=== PATIENT | male | born 1975 | race Caucasian/White ===

== ENCOUNTER 2017-06-25 02:42 | Emergency (ER) | payer MEDICAID ==
[~2017-06-25] VITALS: Ht 177.8 cm; Wt 114.0 kg
[2017-06-25 03:04] VITALS: BP 142/92
== END 2017-06-25 04:46 | disposition left against medical advice (07) ==
LOC: ER 02:42
DX: Z04.3 Encounter for examination and observation following other accident (principal); Z53.21 Procedure and treatment not carried out due to patient leaving prior to being seen by health care provider

== ENCOUNTER 2017-10-16 21:22 | Emergency (ER) | payer SELFPAY ==
[~2017-10-16] VITALS: Ht 177.8 cm; Wt 118.0 kg
[2017-10-16] MEDS ORDERED: KETOROLAC 60MG/2ML VIAL IM STA (23:30)
[2017-10-17 02:53] VITALS: BP 121/56
== END 2017-10-17 02:54 | disposition home or self-care (01) ==
LOC: ER 21:22
DX: S39.012A Strain of muscle, fascia and tendon of lower back, initial encounter (principal); V43.52XA Car driver injured in collision with other type car in traffic accident, initial encounter; Y93.89 Activity, other specified; Y92.89 Other specified places as the place of occurrence of the external cause; Y99.8 Other external cause status
CPT/HCPCS: 72100; 96372; 99284; J1885; Z7610; 99283

== ENCOUNTER 2018-08-22 16:50 | Emergency (ER) | payer SELFPAY ==
[~2018-08-22] VITALS: Ht 177.8 cm; Wt 114.0 kg
[2018-08-22] MEDS ORDERED: CYCLOBENZAPRINE 10MG TABLET PO ONE (21:30)
[2018-08-22] MEDS ORDERED: KETOROLAC 30MG/ML VIAL IM ONE (21:30)
[2018-08-22 23:36] VITALS: BP 128/72
== END 2018-08-22 23:41 | disposition home or self-care (01) ==
LOC: ER 16:50
DX: S49.82XA Other specified injuries of left shoulder and upper arm, initial encounter (principal); W18.49XA Other slipping, tripping and stumbling without falling, initial encounter; Y93.39 Activity, other involving climbing, rappelling and jumping off; Y92.89 Other specified places as the place of occurrence of the external cause
CPT/HCPCS: 73030; 96372; 99283; J1885; A4565

== ENCOUNTER 2020-04-22 01:25 | Emergency (ER) | payer SELFPAY ==
[~2020-04-22] VITALS: Ht 177.8 cm; Wt 127.0 kg
[2020-04-22 01:31] VITALS: BP 136/79
== END 2020-04-22 03:00 | disposition left against medical advice (07) ==
LOC: ER 01:40
DX: R10.2 Pelvic and perineal pain (principal); Z53.21 Procedure and treatment not carried out due to patient leaving prior to being seen by health care provider

== ENCOUNTER 2020-05-31 13:23 | Emergency (ER) | payer MEDICAID ==
[~2020-05-31] VITALS: Ht 177.8 cm; Wt 136.0 kg
[2020-05-31 16:35] LABS: CLARITY URINE CLEAR (CLEAR); COLOR URINE YELLOW (YELLOW); KETONES URINE NEGATIVE (NEGATIVE); LEUKOCYTE ESTERASE URINE NEGATIVE (NEGATIVE); NITRITE URINE NEGATIVE (NEGATIVE); OCCULT BLOOD URINE NEGATIVE (NEGATIVE); PH URINE 5.5 (4.5-8.0); PROTEIN URINE NEGATIVE (NEGATIVE); SPECIFIC GRAVITY URINE 1.021 (1.005-1.030); UROBILINOGEN URINE 0.2 E.U./dL (0.2-1.0)
[2020-05-31] MEDS ORDERED: KETOROLAC 60MG/2ML VIAL IM ONE (17:30)
[2020-05-31 18:29] VITALS: BP 142/83
[2020-06-03 04:07] LABS: NEISSERIA GONORRHOEAE NAA Negative (Negative)
== END 2020-05-31 18:31 | disposition home or self-care (01) ==
LOC: ER 13:23
DX: N43.2 Other hydrocele (principal); R03.0 Elevated blood-pressure reading, without diagnosis of hypertension
CPT/HCPCS: 76870; 81003; 87086; 87491; 87591; 93005; 93976; 96372; 99285; J1885

== ENCOUNTER 2020-06-24 00:11 | Emergency (ER) | payer MEDICAID ==
[~2020-06-24] VITALS: Ht 177.8 cm; Wt 136.0 kg
[2020-06-24 00:15] VITALS: BP 130/82
[2020-06-24] MEDS ORDERED: HYDROCODONE/ACETAMINOPHEN 5/325MG TABLET PO STA (00:30)
[2020-06-24] MEDS ORDERED: ONDANSETRON HCL 4MG/2ML INJ IV STA (00:30)
[2020-06-24] MEDS ORDERED: KETOROLAC 30MG/ML VIAL IV STA (00:30)
[2020-06-24 01:07] LABS: BASOPHILS % 0.5 % (0.0-2.0); EOSINOPHILS % 4.1 % (0.0-5.0); HEMATOCRIT. 41.3 % (42.0-52.0); HEMOGLOBIN. 13.8 g/dL (14.0-18.0); LYMPHOCYTES % 30.5 % (20.0-50.0); MEAN CORPUSCULAR HEMOGLOBIN 29.2 pg (28.0-32.0); MEAN CORPUSCULAR VOLUME 87.3 fL (80.0-94.0); MEAN PLATELET VOLUME 7.3 fl (7.4-10.4); MONOCYTES % 6.1 % (2.0-8.0); NEUTROPHILS % 58.8 % (40.0-76.0); PLATELET 380 x1000/uL (130-400); RED BLOOD CELL COUNT 4.73 mill/uL (4.7-6.1); RED CELL DISTRIBUTION WIDTH 14.2 % (11.6-14.6)
[2020-06-24 01:08] LABS: CHLORIDE 107 mEq/L (98-107)
[2020-06-24 02:00] LABS: PROTHROMBIN TIME 10.3 sec (9.6-11.0)
[2020-06-24 03:58] LABS: CLARITY URINE CLEAR (CLEAR); COLOR URINE YELLOW (YELLOW); KETONES URINE NEGATIVE (NEGATIVE); LEUKOCYTE ESTERASE URINE NEGATIVE (NEGATIVE); NITRITE URINE NEGATIVE (NEGATIVE); OCCULT BLOOD URINE NEGATIVE (NEGATIVE); PROTEIN URINE NEGATIVE (NEGATIVE); SPECIFIC GRAVITY URINE 1.027 (1.005-1.030); UROBILINOGEN URINE 0.2 E.U./dL (0.2-1.0)
== END 2020-06-24 04:22 | disposition home or self-care (01) ==
LOC: ER 00:11
DX: N43.3 Hydrocele, unspecified (principal); I86.1 Scrotal varices; N50.89 Other specified disorders of the male genital organs; E66.9 Obesity, unspecified
CPT/HCPCS: 36415; 76870; 80053; 81003; 85025; 85610; 93976; 96374; 96375; 99284; J1885; J2405

== ENCOUNTER 2021-09-30 10:37 | Emergency (ER) | payer MEDICAID ==
[~2021-09-30] VITALS: Ht 177.8 cm; Wt 140.0 kg
[2021-09-30 10:40] VITALS: BP 122/79
== END 2021-09-30 11:56 | disposition left against medical advice (07) ==
LOC: ER 10:37
DX: Z53.21 Procedure and treatment not carried out due to patient leaving prior to being seen by health care provider (principal)

== ENCOUNTER 2022-01-26 13:07 | Emergency (ER) | payer MEDICAID ==
[~2022-01-26] VITALS: Ht 177.8 cm; Wt 136.0 kg
[2022-01-26 13:22] VITALS: BP 146/83
[2022-01-26] MEDS ORDERED: MECLIZINE 25MG TABLET PO ONE (14:30)
[2022-01-26] MEDS ORDERED: SODIUM CHLORIDE 0.9% 1,000 ML IV ONE (14:30)
[2022-01-26 15:22] LABS: BASOPHILS % 0.5 % (0.0-2.0); HEMATOCRIT. 45.7 % (42.0-52.0); HEMOGLOBIN. 15.3 g/dL (14.0-18.0); LYMPHOCYTES % 25.1 % (20.0-50.0); MEAN CORPUSCULAR HEMOGLOBIN 29.1 pg (28.0-32.0); MEAN CORPUSCULAR VOLUME 87.1 fL (80.0-94.0); MEAN PLATELET VOLUME 7.4 fl (7.4-10.4); MONOCYTES % 5.3 % (2.0-8.0); NEUTROPHILS % 67.1 % (40.0-76.0); PLATELET 432 x1000/uL (130-400); RED BLOOD CELL COUNT 5.24 mill/uL (4.7-6.1); RED CELL DISTRIBUTION WIDTH 14.1 % (11.6-14.6)
[2022-01-26 15:32] LABS: CHLORIDE 104 mEq/L (98-107)
[2022-01-26] MEDS ORDERED: MECL-159 MT (15:59)
== END 2022-01-26 16:09 | disposition home or self-care (01) ==
LOC: ER 13:07
DX: R42 Dizziness and giddiness (principal); R53.1 Weakness; R61 Generalized hyperhidrosis; D72.829 Elevated white blood cell count, unspecified
CPT/HCPCS: 36415; 71045; 80053; 82962; 84484; 85025; 99284; J7030; J8597

== ENCOUNTER 2023-10-01 16:25 | Emergency (ER) | payer SELFPAY ==
[~2023-10-01] VITALS: Ht 177.8 cm; Wt 113.0 kg
[~2023-10-01 16:25] MED LIST: MECL-299 MT
[2023-10-01 16:31] VITALS: BP 140/85; PULSE 94; RESP 20; O2SAT 95
[2023-10-01 17:57] VITALS: TEMP 98.5
[2023-10-01] MEDS: ACETAMINOPHEN 325MG TABLET PO STA (17:57)
[2023-10-01 19:10] LABS: BASOPHILS % 0.8 % (0.0-2.0); EOSINOPHILS % 2.9 % (0.0-5.0); HEMATOCRIT. 41.7 % (42.0-52.0); HEMOGLOBIN. 13.9 g/dL (14.0-18.0); LYMPHOCYTES % 25.8 % (20.0-50.0); MEAN CORPUSCULAR HEMOGLOBIN 29.2 pg (28.0-32.0); MEAN CORPUSCULAR HGB CONC 33.2 g/dL (31.0-37.0); MEAN CORPUSCULAR VOLUME 87.9 fL (80.0-94.0); MEAN PLATELET VOLUME 7.6 fl (7.4-10.4); MONOCYTES % 5.7 % (2.0-8.0); NEUTROPHILS % 64.8 % (40.0-76.0); PLATELET 371 x1000/uL (130-400); RED BLOOD CELL COUNT 4.75 mill/uL (4.7-6.1); RED CELL DISTRIBUTION WIDTH 14.2 % (11.6-14.6); WHITE BLOOD COUNT 12.2 x1000/uL (4.5-11.0)
[2023-10-01 19:23] LABS: INR 0.9; PROTHROMBIN TIME 10.6 sec (9.6-11.0)
[2023-10-01 19:26] LABS: ALANINE AMINOTRANSFERASE 42 IU/L (10-49); ALBUMIN 4.4 g/dL (3.2-4.8); ASPARTATE AMINOTRANSFERASE 32 IU/L (<34); BILIRUBIN TOTAL 0.3 mg/dL (0.1-1.0); CALCIUM 8.6 mg/dL (8.7-10.4); CARBON DIOXIDE 26 mEq/L (21-32); CHLORIDE 109 mEq/L (98-107); CREATININE 1.2 mg/dL (0.6-1.3); GLUCOSE 107 mg/dL (70-105); SODIUM 140 mEq/L (136-145); UREA NITROGEN BLOOD 14 mg/dL (9-23)
== END 2023-10-02 01:12 | disposition left against medical advice (07) ==
LOC: ER 16:25
DX: S09.90XA Unspecified injury of head, initial encounter (principal); R22.1 Localized swelling, mass and lump, neck; F12.90 Cannabis use, unspecified, uncomplicated; Z98.890 Other specified postprocedural states; W18.39XA Other fall on same level, initial encounter; Y93.89 Activity, other specified; Y92.89 Other specified places as the place of occurrence of the external cause; Y99.8 Other external cause status
CPT/HCPCS: 80053; 85025; 85610; 36415; 71045; 99284; Z7610; 99283

== ENCOUNTER 2024-03-30 20:33 | Emergency (ER) | payer MEDICAID ==
[~2024-03-30] VITALS: Ht 177.8 cm; Wt 152.0 kg
[~2024-03-30 20:33] MED LIST changes: +HYDR-4009 MT
[2024-03-30 21:30] VITALS: O2SAT 96
[2024-03-30] MEDS: KETOROLAC 15MG/ML VIAL IM ONE (22:39)
[2024-03-30 23:10] VITALS: BP 142/85; PULSE 77; RESP 16; TEMP 36.66960; O2SAT 100
== END 2024-03-31 00:05 | disposition home or self-care (01) ==
LOC: ER 20:38
DX: S49.92XA Unspecified injury of left shoulder and upper arm, initial encounter (principal); S49.91XA Unspecified injury of right shoulder and upper arm, initial encounter; F12.10 Cannabis abuse, uncomplicated; X58.XXXA Exposure to other specified factors, initial encounter; Y93.89 Activity, other specified; Y92.89 Other specified places as the place of occurrence of the external cause; Y99.8 Other external cause status
CPT/HCPCS: 99283; 73030; 96372; J1885